=== PATIENT | male | born 1965 | race Two or more races ===

== ENCOUNTER 2025-07-15 10:53 | Inpatient (IN) | payer OTHER ==
[~2025-07-15] VITALS: Ht 172.7 cm; Wt 67.1 kg
[2025-07-15] MEDS ORDERED: TOPROL XL50 M1 PO (10:59)
[2025-07-15] MEDS ORDERED: LOSARTAN POTAS100 MG PO (10:59)
[2025-07-15] MEDS ORDERED: FAMOTIDINE/PF 20 MG in 0.9 % SODIUM CHLORIDE 8 ML IV PUSH STA (11:18)
[2025-07-15] MEDS ORDERED: ONDANSETRON HCL 2 MG/ML VIAL ONE ×2 (11:23→16:10)
[2025-07-15] MEDS ORDERED: FAMOTIDINE/PF 20 MG/2 ML VIAL ONE ×2 (11:24→16:10)
[2025-07-15] MEDS ORDERED: BARIUM SULFATE 450 ML ORAL.SUSP PO ONE (11:24)
[2025-07-15] MEDS ORDERED: 0.9 % SODIUM CHLORIDE 1,000 ML IV SCH (11:30)
[2025-07-15] MEDS ORDERED: ONDANSETRON HCL 2 MG/ML VIAL IV ONE (11:30)
[2025-07-15] MEDS ORDERED: BARIUM SULFATE 450 ML BOTTLE PO ONE (11:30)
[2025-07-15] MEDS ORDERED: MORPHINE SULFATE 4 MG/ML VIAL IV ONE ×2 (11:30→15:00)
[2025-07-15 11:53] LABS: BASO % 0.5 % (0.1-1.2); EOS # 0.08 (0.04-0.54); EOS % 0.7 % (0.7-7.0); LYMPH # 0.64 (1.18-3.74); LYMPH % 6.0 % (19.3-53.1); MEAN PLATELET VOLUME 8.90 fl (9.4-12.4); MONO # 0.49 (0.24-0.82); MONO % 4.6 % (4.7-12.5); NEUT # 9.41 (1.56-6.13); NEUT % 87.9 % (34.0-71.1); RED CELL DISTRIBUTION WIDTH 13.6 % (11.6-14.4)
[2025-07-15 12:43] LABS: ALT/SGPT 49.0 U/L (12-78); AST/SGOT 32.0 U/L (15-37); BILIRUBIN TOTAL 0.85 mg/dL (0.3-1.2); BILIRUBIN,CONJUGATED 0.18 mg/dL (0.0-0.2); BUN CREA RATIO 12.0 (7.0-25.0); CREATININE SERUM 1.47 mg/dL (0.70-1.30); GFR 48.86; GLOBULINA 4.6 G/DL (2.4-3.5); GLUCOSE FASTING 121.0 mg/dL (65-100); OSMOLALITY SERUM 279.0 MOSM/KG (275-295)
[2025-07-15 14:26] LABS: COVID-19 AG NEGATIVE (NEGATIVE)
[2025-07-15] MEDS ORDERED: CIPROFLOXACIN IN 5 % DEXTROSE 400 MG/200 ML PIGGYBAG IV ONE ×2 (15:27→15:30)
[2025-07-15] MEDS ORDERED: METHYLPREDNISOLONE SOD SUCC 125 MG VIAL ONE (15:27)
[2025-07-15] MEDS ORDERED: METRONIDAZOLE/SODIUM CHLORIDE 500 MG/100 ML PIGGYBACK IV ONE ×2 (15:27→15:30)
[2025-07-15] MEDS ORDERED: METHYLPREDNISOLONE SOD SUCC 125 MG VIAL IV ONE (15:30)
[2025-07-15] MEDS ORDERED: RINGERS SOLUTION,LACTATED 1,000 ML IV SCH (16:15)
[2025-07-15] MEDS ORDERED: ONDANSETRON HCL 4 MG in 0.9 % SODIUM CHLORIDE 50 ML IV ONE (16:15)
[2025-07-15 17:00] VITALS: BP 147/75; O2SAT 97
[2025-07-15] MEDS ORDERED: FAMOTIDINE/PF 20 MG in 0.9 % SODIUM CHLORIDE 8 ML IV PUSH SCH (17:00)
[2025-07-15 17:09] LABS: INR 0.96
[2025-07-15] MEDS ORDERED: METHYLPREDNISOLONE SOD SUCC 40 MG VIAL IV SCH (19:41)
[2025-07-15] MEDS ORDERED: MORPHINE SULFATE 4 MG/ML CARTRIDGE IV SCH (20:00)
[2025-07-15 21:17] LABS: URINE APPEARANCE Clear; URINE BILIRRUBIN Negative (NEGATIVE); URINE BLOOD Trace; URINE COLOR Yellow; URINE GLUCOSE Negative (NEGATIVE); URINE KETONE Trace (NEGATIVE); URINE LEUKOCYTE Negative; URINE NITRATE Negative; URINE PROTEIN Trace (NEGATIVE); URINE UROBILINOGEN 0.2 E.U./dl
[2025-07-15 21:21] LABS: URINE EPITHELIAL CELLS 1.6 uL (0.0-38.8); URINE RBC 5.2 uL (0.0-20.8)
[2025-07-15 21:22] LABS: URINE BACTERIA 3.5 uL (0.0-1933); URINE CAST 1.02 uL (0.0-1.40); URINE WBC 1.6 uL (0.0-23.2)
[2025-07-15] MEDS ORDERED: DIPHENHYDRAMINE HCL 50 MG/ML VIAL 1ML IV PRN (22:00)
[2025-07-15] MEDS ORDERED: HYOSCYAMINE SULFATE 0.125 MG TAB.SUBL SL PRN (22:00)
[2025-07-15] MEDS ORDERED: NALOXONE HCL 0.4 MG/ML AMPUL IV PRN (22:00)
[2025-07-15] MEDS ORDERED: ONDANSETRON HCL 2 MG/ML VIAL IV PRN (22:00)
[2025-07-15] MEDS ORDERED: SIMETHICONE 125 MG CAPSULE PO PRN (22:00)
[2025-07-15] MEDS ORDERED: METOPROLOL SUCCINATE 50 MG TAB.SR.24H PO STA (22:21)
[2025-07-15] MEDS ORDERED: LOSARTAN POTASSIUM 100 MG TABLET PO STA (22:23)
[2025-07-15] MEDS ORDERED: METOPROLOL SUCCINATE 50 MG TAB.SR.24H PO ONE (22:24)
[2025-07-16 01:47] VITALS: BP 93/59; O2SAT 96
[2025-07-16 08:00] VITALS: BP 96/61; O2SAT 97
[2025-07-16] MEDS ORDERED: CIPROFLOXACIN IN 5 % DEXTROSE 200 ML IV SCH (09:00)
[2025-07-16] MEDS ORDERED: ENOXAPARIN SODIUM 40 MG/0.4 ML SYRINGE SUBCUTANEO SCH (09:00)
[2025-07-16 18:00] VITALS: BP 101/68; O2SAT 97
[2025-07-16] MEDS ORDERED: LOSARTAN POTASSIUM 100 MG TABLET PO SCH (21:00)
[2025-07-16] MEDS ORDERED: METOPROLOL SUCCINATE 50 MG TAB.SR.24H PO SCH (21:00)
[2025-07-16] MEDS ORDERED: SENNA/DOCUSATE SODIUM 1 TAB TABLET PO SCH (21:00)
[2025-07-17 01:48] VITALS: BP 102/57; O2SAT 99
[2025-07-17] MEDS ORDERED: NA PHOS,M-B/NA PHOS,DI-BA 1 BOTTLE ENEMA RECTAL ONE (06:00)
[2025-07-17 07:28] LABS: BASO % 0.1 % (0.1-1.2); EOS # 0.00 (0.04-0.54); EOS % 0.0 % (0.7-7.0); LYMPH # 0.53 (1.18-3.74); LYMPH % 3.6 % (19.3-53.1); MEAN PLATELET VOLUME 9.70 fl (9.4-12.4); MONO # 0.34 (0.24-0.82); MONO % 2.3 % (4.7-12.5); NEUT # 13.97 (1.56-6.13); NEUT % 93.7 % (34.0-71.1); RED CELL DISTRIBUTION WIDTH 13.8 % (11.6-14.4)
[2025-07-17 08:00] LABS: ALT/SGPT 35.0 U/L (12-78); AST/SGOT 23.0 U/L (15-37); BILIRUBIN TOTAL 0.66 mg/dL (0.3-1.2); BUN CREA RATIO 13.0 (7.0-25.0); CREATININE SERUM 1.37 mg/dL (0.70-1.30); GFR 53.0; GLOBULINA 3.2 G/DL (2.4-3.5); GLUCOSE FASTING 131.0 mg/dL (65-100); OSMOLALITY SERUM 285.0 MOSM/KG (275-295)
[2025-07-17 08:27] VITALS: BP 94/62; O2SAT 97
[2025-07-17] MEDS ORDERED: METHYLPREDNISOLONE SOD SUCC 40 MG VIAL IV SCH (09:00)
[2025-07-17] MEDS ORDERED: SODIUM ZIRCONIUM CYCLOSILICATE 10 GM POWD.PACK PO SCH ×2 (12:00→17:00)
[2025-07-17] MEDS ORDERED: DIPHENHYDRAMINE HCL 50 MG/ML VIAL 1ML IV ONE (12:15)
[2025-07-17] MEDS ORDERED: fentaNYL CITRATE 50 MCG/ML AMPUL IV ONE (12:15)
[2025-07-17] MEDS ORDERED: MIDAZOLAM HCL 2 MG/2 ML VIAL IV ONE (12:30)
[2025-07-17 17:31] VITALS: BP 96/63; O2SAT 95
[2025-07-18 01:57] VITALS: BP 102/61; O2SAT 99
[2025-07-18 08:23] VITALS: BP 96/63; O2SAT 97
[2025-07-18 09:08] LABS: HEPATITIS A ANTIBODY IGG Positive (Negative); HEPATITIS B CORE IGG Negative (Negative); HEPATITIS C VIRUS ANTIBODY Non Reactive (Non Reactive)
[2025-07-18 17:45] VITALS: BP 106/66; O2SAT 97
[2025-07-20 06:38] LABS: quan ag 0.02 IU/mL (.); quan mito 0.25 IU/mL (.); quant nil 0.01 IU/mL (.)
== END 2025-07-18 19:12 | DRG 392 ==
LOC: ER 10:53 → SURH 16:35 → SEC-K 16:35 → SURH 16:58
PROVIDERS: General Practice; Internal Medicine Gastroenterology; ADMIT Internal Medicine; ATTEND Internal Medicine
PROC: BW21ZZZ Computerized Tomography (CT Scan) of Abdomen and Pelvis (ICD-10-PCS; 2025-07-15)
PROC: 0DB68ZX Excision of Stomach, Via Natural or Artificial Opening Endoscopic, Diagnostic (ICD-10-PCS; principal; 2025-07-17)
PROC: 0DB78ZX Excision of Stomach, Pylorus, Via Natural or Artificial Opening Endoscopic, Diagnostic (ICD-10-PCS; 2025-07-17)
PROC: 0DB88ZX Excision of Small Intestine, Via Natural or Artificial Opening Endoscopic, Diagnostic (ICD-10-PCS; 2025-07-17)
PROC: 0DBB8ZX Excision of Ileum, Via Natural or Artificial Opening Endoscopic, Diagnostic (ICD-10-PCS; 2025-07-17)
DX: K52.9 Noninfective gastroenteritis and colitis, unspecified (principal); K51.90 Ulcerative colitis, unspecified, without complications; K91.850 Pouchitis; K29.50 Unspecified chronic gastritis without bleeding; K31.7 Polyp of stomach and duodenum; K30 Functional dyspepsia; E86.0 Dehydration; E87.5 Hyperkalemia; D64.89 Other specified anemias; I10 Essential (primary) hypertension